=== PATIENT | female | born 1995 | race Hispanic/Latino ===

== ENCOUNTER 2022-09-17 17:58 | Inpatient (IN) | payer OTHER ==
[~2022-09-17] VITALS: Ht 149.9 cm; Wt 70.0 kg
[2022-09-17] VITALS (25 sets, daily range): BP systolic 127–187; BP diastolic 73–115
[2022-09-17] MEDS ORDERED: PRENTAB9 PO (18:14)
[2022-09-17] MEDS ORDERED: HOME MED LIST COMPLETE! XX SCH (18:15)
[2022-09-17] MEDS ORDERED: NIFEdipine 10 MG CAP PO ONE (18:30)
[2022-09-17 19:06] LABS: HEMATOCRIT 38.1 % (36.0-47.0); HEMOGLOBIN 13.3 g/dl (12.0-15.5); MEAN CORPUSCULAR HEMOGLOBIN 30.9 pg (27.0-33.0); MEAN CORPUSCULAR HGB CONC 34.9 g/dl (32.0-36.5); MEAN CORPUSCULAR VOLUME 88.4 fl (80.0-96.0); PLATELET COUNT, AUTOMATED 242 10^3/uL (150-450); RED BLOOD COUNT 4.31 10^6/uL (4.00-5.40); WHITE BLOOD COUNT 12.1 10^3/uL (4.0-10.0)
[2022-09-17] MEDS ORDERED: LACTATED RINGER'S 1000 ML IV STA (19:12)
[2022-09-17] MEDS ORDERED: PENICILLIN G POTASSIUM 5 MU IV 5 MU in D5W MINI-BAG PLUS 100 ML IV STA (19:12)
[2022-09-17] MEDS ORDERED: TRANEXAMIC ACID INJection 1,000 MG in NS 100 ML IV PRN (19:15)
[2022-09-17] MEDS ORDERED: OXYTOCIN DRIP 30 UNITS in IV 1 EA IV SCH (19:15)
[2022-09-17] MEDS ORDERED: OXYTOCIN INJ 10UNITS/ML 1ML VIAL IM PRN (19:15)
[2022-09-17] MEDS ORDERED: OXYTOCIN DRIP 30 UNITS in IV 1 EA IV PRN ×4 (19:15)
[2022-09-17] MEDS ORDERED: LIDOCAINE 1% MDV 20ML VIAL INFIL PRN (19:15)
[2022-09-17] MEDS ORDERED: MAG Sulf (L&D) 4 GM/100 ML 4 GM in IV 1 EA IV ONE (19:15)
[2022-09-17] MEDS ORDERED: miSOPROStol 50MCG 1/2 TABLET PO ONE (19:15)
[2022-09-17] MEDS ORDERED: OXYTOCIN INJ 10UNITS/ML 1ML VIAL IV PRN (19:15)
[2022-09-17] MEDS ORDERED: CARBOPROST TROMETHAMINE 250 MCG/ML AMP IM PRN (19:15)
[2022-09-17 19:29] LABS: CREATININE,RANDOM URINE 31.5 MG/DL; LDH LACTATE DEHYDROGENASE 220 U/L (120-246)
[2022-09-17 19:30] LABS: ALBUMIN 1.8 G/DL (3.2-5.2); ALKALINE PHOSPHATASE 127 U/L (46-116); ALT/SGPT 9 U/L (7.0-40); AST/SGOT 15 U/L (<34); BILIRUBIN,TOTAL 0.2 MG/DL (0.3-1.2); BLOOD UREA NITROGEN 12 MG/DL (9-23); CARBON DIOXIDE LEVEL 22 MMOL/L (20-31); CHLORIDE LEVEL 107 MMOL/L (98-107); CREATININE FOR GFR 0.66 MG/DL (0.55-1.30); GLOMERULAR FILTRATION RATE > 60.0 (>60); GLUCOSE, FASTING 65 MG/DL (60-100); POTASSIUM SERUM 4.2 MMOL/L (3.5-5.1); SODIUM LEVEL 138 MMOL/L (136-145); TOTAL PROTEIN 5.1 G/DL (5.7-8.2)
[2022-09-17 19:32] LABS: TOTAL PROTEIN,RANDOM URINE 393.6 MG/DL (0.0-14.0); URIC ACID 6.6 MG/DL (3.1-7.8)
[2022-09-17] MEDS ORDERED: BETAMETHASONE SOLUSPAN 6MG/ML 5ML VIAL IM SCH (20:00)
[2022-09-17] MEDS: MAG Sulf (OBGYN) 20GM/500ML 20,000 MG in IV 1 EA IV SCH (20:16)
[2022-09-18] VITALS (65 sets, daily range): BP systolic 112–177; BP diastolic 71–105
[2022-09-18] MEDS: PEN G POT 3,000,000 UNIT/50 ML 3,000,000 UNIT in IV 1 EA IV SCH ×2 (01:13→05:14)
[2022-09-18] MEDS: LR 1,000 ML IV SCH ×4 (04:00→21:13)
[2022-09-18] MEDS: MAG Sulf (OBGYN) 20GM/500ML 20,000 MG in IV 1 EA IV SCH ×2 (05:14→15:21)
[2022-09-18 07:16] LABS: CORD GAS ABE A -7.6; CORD GAS O2 SAT A 79.3 %; CORD GAS PH A 7.215 UNITS; CORD GAS PO2 A 38.7 mmHg; CORD GAS TCO2 A 22.6 MEQ/L
[2022-09-18 07:19] LABS: CORD GAS HCO3 V 18.5 MEQ/L; CORD GAS O2 SAT V 69.7 %; CORD GAS PCO2 V 45.1 mmHg; CORD GAS PH V 7.23 UNITS; CORD GAS PO2 V 32.8 mmHg; CORD GAS SBC V 16.8 MEQ/L; CORD GAS TCO2 V 19.8 MEQ/L
[2022-09-18] MEDS ORDERED: DIBUCAINE 1% OINTMENT 30GM TOP PRN (07:25)
[2022-09-18] MEDS ORDERED: ACETAMINOPHEN 500 MG TAB PO PRN (07:25)
[2022-09-18] MEDS ORDERED: DOCUSATE SODIUM 100MG CAPSULE PO PRN (07:25)
[2022-09-18] MEDS ORDERED: OXYTOCIN DRIP 30 UNITS in IV 1 EA IV SCH (07:55)
[2022-09-18 08:42] LABS: HEMATOCRIT 40.3 % (36.0-47.0); HEMOGLOBIN 13.9 g/dl (12.0-15.5); MEAN CORPUSCULAR HEMOGLOBIN 30.5 pg (27.0-33.0); MEAN CORPUSCULAR HGB CONC 34.5 g/dl (32.0-36.5); MEAN CORPUSCULAR VOLUME 88.4 fl (80.0-96.0); PLATELET COUNT, AUTOMATED 244 10^3/uL (150-450); RED BLOOD COUNT 4.56 10^6/uL (4.00-5.40); WHITE BLOOD COUNT 13.8 10^3/uL (4.0-10.0)
[2022-09-18] MEDS ORDERED: LABETALOL 200 MG TAB PO SCH (09:00)
[2022-09-18] MEDS: PRENATAL VITAMINS CHEWABLE TABLET PO SCH (12:39)
[2022-09-18] MEDS: IBUPROFEN 800 MG TAB PO PRN (12:40)
[2022-09-18] MEDS ORDERED: NIFEdipine 10 MG CAP PO ONE (16:35)
[2022-09-18] MEDS: LABETALOL 200 MG TAB PO SCH (21:13)
[2022-09-19] VITALS (12 sets, daily range): BP systolic 128–150; BP diastolic 80–96
[2022-09-19] MEDS: MAG Sulf (OBGYN) 20GM/500ML 20,000 MG in IV 1 EA IV SCH (02:13)
[2022-09-19] MEDS: LR 1,000 ML IV SCH (04:00)
[2022-09-19 07:13] LABS: HEMATOCRIT 35.9 % (36.0-47.0); HEMOGLOBIN 12.5 g/dl (12.0-15.5); MEAN CORPUSCULAR HEMOGLOBIN 30.9 pg (27.0-33.0); MEAN CORPUSCULAR HGB CONC 34.8 g/dl (32.0-36.5); MEAN CORPUSCULAR VOLUME 88.9 fl (80.0-96.0); PLATELET COUNT, AUTOMATED 245 10^3/uL (150-450); RED BLOOD COUNT 4.04 10^6/uL (4.00-5.40)
[2022-09-19] MEDS: PRENATAL VITAMINS CHEWABLE TABLET PO SCH (08:24)
[2022-09-19] MEDS: IBUPROFEN 800 MG TAB PO PRN ×2 (08:25→19:48)
[2022-09-19] MEDS: LABETALOL 200 MG TAB PO SCH ×2 (08:25→20:32)
[2022-09-20 02:00] VITALS: BP 141/81
[2022-09-20 06:00] VITALS: BP 154/85
[2022-09-20 07:36] LABS: HEMATOCRIT 34.3 % (36.0-47.0); HEMOGLOBIN 11.6 g/dl (12.0-15.5); MEAN CORPUSCULAR HGB CONC 33.8 g/dl (32.0-36.5); MEAN CORPUSCULAR VOLUME 91.7 fl (80.0-96.0); PLATELET COUNT, AUTOMATED 210 10^3/uL (150-450); RED BLOOD COUNT 3.74 10^6/uL (4.00-5.40); WHITE BLOOD COUNT 11.6 10^3/uL (4.0-10.0)
[2022-09-20 09:14] VITALS: BP 135/87
[2022-09-20] MEDS: LABETALOL 200 MG TAB PO SCH (09:14)
[2022-09-20] MEDS: PRENATAL VITAMINS CHEWABLE TABLET PO SCH (09:15)
[2022-09-20] MEDS: IBUPROFEN 800 MG TAB PO PRN (13:25)
== END 2022-09-20 15:05 | disposition home or self-care (01) | DRG 807 ==
LOC: M LDO 17:58 → M LDI 19:28 → M OBS 09-18 15:54
PROVIDERS: ADMIT Obstetrics & Gynecology; ATTEND Obstetrics & Gynecology
PROC: 3E033VJ Introduction of Other Hormone into Peripheral Vein, Percutaneous Approach (ICD-10-PCS; 2022-09-17)
PROC: 10E0XZZ Delivery of Products of Conception, External Approach (ICD-10-PCS; principal; 2022-09-18)
PROC: 10907ZC Drainage of Amniotic Fluid, Therapeutic from Products of Conception, Via Natural or Artificial Opening (ICD-10-PCS; 2022-09-18)
DX: O14.14 Severe pre-eclampsia complicating childbirth (principal); Z37.0 Single live birth; Z3A.34 34 weeks gestation of pregnancy; O76 Abnormality in fetal heart rate and rhythm complicating labor and delivery; O99.824 Streptococcus B carrier state complicating childbirth